=== PATIENT | female | born 1935 | race Caucasian/White ===

== ENCOUNTER 2021-08-15 10:24 | Inpatient (IN) ==
[2021-08-15] MEDS ORDERED: IPRATROPIUM/ALBUTEROL 3 ML AMPUL.NEB NEB ONE (10:28)
[2021-08-15] MEDS ORDERED: methylPREDNISolone SOD SUCC 125 MG/2 ML VIAL IV ONE (10:39)
--- NOTE | 2021-08-15 10:45 | Emergency Department Note ---
SOB HPI General Chief Complaint: Shortness of Breath/Dyspnea Stated Complaint: shortness of breath, hypoxia Time Seen by Provider: 08/15/21 10:28 Source: patient and family Mode of arrival: wheelchair Limitations: no limitations History of Present Illness HPI Narrative: 86-year-old female patient with history of hypertension presents for 4 days of cough, chills, malaise, and shortness of breath. She was seen at [facility] where her O2 saturations were in the 80s on room air. She was sent over for further evaluation. Upon arrival here her O2 sats were 76% on room air. She is vaccinated and boosted for Covid, and vaccinated for influenza. Received the pneumococcal vaccine in 2013. No history of COPD or asthma. She complains of wheezing with her current symptoms. Denies nausea/vomiting. Has also had persistent diarrhea for the last few days. Denies abdominal pain, hematuria or dysuria. Related Data Home Medications Medication Instructions Recorded Confirmed amlodipine 5 mg tablet 5 mg PO QDAY 08/15/21 08/15/21 hydrochlorothiazide 25 mg tablet 25 mg PO QDAY 08/15/21 08/15/21 levothyroxine 88 mcg tablet 88 mcg PO QDAY 08/15/21 08/15/21 ramipril 10 mg capsule 10 mg PO QDAY 08/15/21 08/15/21 simvastatin 20 mg tablet 20 mg PO QHS 08/15/21 08/15/21 Allergies Allergy/AdvReac Type Severity Reaction Status Date / Time No Known Drug Allergies Allergy Verified 08/15/21 10:27 Review of Systems ROS ROS Narrative: Narrative: All systems ED: reviewed and negative except as stated. [facility] Narrative Patient History Narrative: Narrative: Medical/Surgical/Family History All Active Problems (Updated 08/15/21 @ 14:37 by Oralia Cobian PA-C) CAP (community acquired pneumonia) (Acute) Hypoxia (Acute) Social History Smoking Status: Never smoker Exam Narrative Narrative: General: AOx3, NAD, nontoxic appearing. Pleasant and conversant. HEENT: PERRL, EOMI, normocephalic. Moist mucous membranes. Chest: Symmetric, no pain to palpation Respiratory: Expiratory wheezes in the bilateral bases. No respiratory distress. Unlabored breathing. Heart: Regular rate and rhythm, no murmurs/clicks/rubs. Abdomen: Non-tender, Non distended, normal bowel tones. No organomegaly. Extremities: Warm and well perfused. No edema. DP 2+ bilaterally. No venous stasis. Neuro: No focal deficits. Cranial nerves II-XII grossly normal. Skin: Warm dry, no rashes or lesions, no cyanosis. Psych: Normal mood and affect Heme/Lymph: No abnormal bruising General Limitations: no limitations Course Course Course Narrative: 86-year-old female presents for new onset hypoxia and cough Reevaluation(s) Reevaluation #1: Obtain basic labs and chest x-ray DuoNebs EKG Reevaluation #2: EKG shows normal sinus rhythm with a right bundle branch block Laboratory data without leukocytosis, chest x-ray shows a right lower lobe pneumonia--> give IV ceftriaxone and azithromycin Patient's wheezing has improved with duo nebs We will ascertain her oxygen needs. Patient's curb 65 score is 1 and she would prefer to discharge home, but her insurance will not cover home oxygen at this time. Reevaluation #3: Patient is still requiring 2 to 3 L of oxygen via nasal cannula and drops to the mid to high 80s on room air. At this time she will need to be admitted for co mmune acquired pneumonia and hypoxia. I have reached out to our hospitalist here for admission and we are waiting for a bed to become available. Vital Signs Vital signs: Vital Signs Temperature 98.1 F 08/15/21 10:25 Pulse Rate 89 08/15/21 10:25 Respiratory Rate 24 H 08/15/21 10:25 Pulse Oximetry (%) 76 L 08/15/21 10:25 Temperature 98.1 F 08/15/21 10:25 Pulse Rate 87 08/15/21 13:31 Respiratory Rate 21 08/15/21 13:31 Blood Pressure 131/58 08/15/21 13:31 Pulse Oximetry (%) 95 08/15/21 13:31 [facility] MDM Narrative Medical decision making narrative: Community-acquired pneumonia Hypoxia Currently the patient is pending admission and we are waiting for bed to become available. Curb 65 score is 1 and she would prefer to discharge home; however, she does have ongoing oxygen requirements and we are not able to get her home oxygen from the ER. I have spoken with Dr. Bell who has accepted the patient for admission. Lab Data Result diagrams: 08/15/21 10:43 08/15/21 10:43 Labs: Lab Results 08/15/21 08/15/21 Range/Units 10:43 10:43 WBC 8.1 (4.5-11.0) K/mcL RBC 4.72 (3.59-5.38) M/mcL Hgb 12.8 (11.2-15.7) g/dL Hct 37.8 (34.1-44.9) % MCV 80.1 (80.0-100.0) fL MCH 27.1 (26.0-34.0) pg MCHC 33.9 (31.0-36.0) g/dL RDW 14.4 (11.5-14.5) % Plt Count 176 (140-440) K/mcL MPV 11.6 H (7.4-10.4) fL Seg Neutrophils % 79 H (38-78) % Band Neutrophils % 3 (0-10) % Lymphocytes % 10 L (15-49) % Monocytes % (Manual) 7 (1-12) % Basophils % (Manual) 1 (0-2) % Platelet Estimate Normal (Normal) RBC Morphology Normal (Normal) Sodium 126 L (133-145) mmol/L Potassium 3.5 (3.3-5.1) mmol/L Chloride 85 L (96-108) mmol/L Carbon Dioxide 24 (22-30) mmol/L Anion Gap 17.0 H (8.0-16.0) BUN 23 (8-23) mg/dL Creatinine 1.0 (0.6-1.1) mg/dL GFR Calculation 51 Glucose 115 H (70-105) mg/dL Calcium 8.8 (8.6-10.4) mg/dL Total Bilirubin 0.6 (0.1-1.0) mg/dL AST 56 H (<32) U/L ALT 25 (<40) U/L Alkaline Phosphatase 58 (39-117) U/L Total Protein 7.3 (5.9-8.4) gm/dL Albumin 3.9 (3.2-5.2) gm/dL Globulin 3.4 (2.2-3.7) gm/dL Albumin/Globulin Ratio 1.1 (1.0-2.3) ED POC Tests ED POC Tests: RONDA - Influenza A Negative RONDA - Influenza B Negative RONDA - SARS Antigen Negative Discharge Plan Patient/Caregiver Discharge Instructions Pt seen by EMPLOYMENT SECURITY OFFICER/PA only: Yes Clinical Impression: Hypoxia, CAP (community acquired pneumonia) Patient Disposition: Xfer As Inpt ([facility]) Condition: Fair Follow up with: Vika Tena MD [Primary Care Provider] - Prescriptions: No Action amlodipine 5 mg Tablet 5 mg PO QDAY 0RF levothyroxine 88 mcg Tablet 88 mcg PO QDAY 0RF simvastatin 20 mg Tablet 20 mg PO QHS 0RF hydrochlorothiazide 25 mg Tablet 25 mg PO QDAY 0RF ramipril 10 mg Capsule 10 mg PO QDAY 0RF
--- NOTE | 2021-08-15 11:03 | XRay Report ---
INDICATION: dyspnea TECHNIQUE: AP portable upright chest x-ray COMPARISON: None FINDINGS: Lungs:Appearance consistent with COPD. Mild focal infiltrate at the right lung base may be volume loss or small focal area of pneumonia. Heart, vascular:No significant cardiomegaly. Pulmonary vascularity is normal. No pulmonary edema or pulmonary congestion Mediastinum, zhanna:No mediastinal widening. No hilar mass Pleura:No pleural fluid. No pleural-based mass or calcification Skeletal:Negative. IMPRESSION: 1. COPD 2. Focal infiltrate at the right lung base may be volume loss or pneumonia Interpreted and Authenticated by: Lico Rivera 08/15/21
[2021-08-15] MEDS ORDERED: cefTRIAXone 1 GM VIAL IV ONE (11:08)
[2021-08-15] MEDS ORDERED: AZITHROMYCIN 500 MG in DEXTROSE 5% IN WATER 250 ML IV ONE (11:08)
[2021-08-15 11:20] LABS: Hematocrit 37.8 % (34.1-44.9); Hemoglobin 12.8 g/dL (11.2-15.7); Mean Cell Volume 80.1 fL (80.0-100.0); Mean Corpuscular HGB Conc 33.9 g/dL (31.0-36.0); Mean Platelet Volume 11.6 fL (7.4-10.4); Platelet Count 176 K/mcL (140-440); RBC 4.72 M/mcL (3.59-5.38); Red Cell Distribution Width 14.4 % (11.5-14.5); WBC 8.1 K/mcL (4.5-11.0)
[2021-08-15 11:38] LABS: ALT/SGPT 25 U/L (<40); AST/SGOT 56 U/L (<32); Albumin 3.9 gm/dL (3.2-5.2); Albumin/Globulin Ratio 1.1 (1.0-2.3); Alkaline Phosphatase 58 U/L (39-117); Bilirubin,Total 0.6 mg/dL (0.1-1.0); Blood Urea Nitrogen 23 mg/dL (8-23); Calcium 8.8 mg/dL (8.6-10.4); Carbon Dioxide 24 mmol/L (22-30); Chloride 85 mmol/L (96-108); Globulin 3.4 gm/dL (2.2-3.7); Glomerular Filtration Rate 51; Glucose 115 mg/dL (70-105)
[2021-08-15 11:50] LABS: Band Neutrophils % 3 % (0-10); Basophils % (Manual) 1 % (0-2); Lymphocytes % 10 % (15-49); Monocytes % (Manual) 7 % (1-12); Platelet Estimate NORMAL (Normal); RBC Morphology NORMAL (Normal); Segmented Neutrophils % 79 % (38-78)
--- NOTE | 2021-08-15 13:41 | EKG ---
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
--- NOTE | 2021-08-15 14:30 | Internal Med History&Physical ---
HPI History of Present Illness Patient information: Note initiated : 08/15/21 at 2:30 pm Service Date, if different from initiated Date: [] Patient: Georgina Bryant a 86 y/o F admitted on for shortness of breath, hypoxia. Chief Complaint: [] History of present illness: Ms. Bryant is a 86 year old F Presents the ED with increased cough shortness of breath wheezing malaise. Thing up thick white sputum. Increased weakness. [facility] and had low oxygenation and went to the ED and had a saturation of 76% on room air. She says she felt like she had a fever several days ago but never checked her temperature. Work-up in the ED was unrevealing for any lab abnormalities on CBC but chemistry showed a low sodium of 126 and chloride. Patient does take hydrochlorothiazide. Chest x-ray showed COPD changes and RLL infiltrate either volume loss or pna per rads read. Review of Systems: Pertinent positives above. Denies headache//chills/nausea/vomiting/chest or abdominal pain/diarrhea. Many 10 point review of system reviewed negative. PFSH PFSH All Active Problems (Updated 08/15/21 @ 14:37 by Oralia Cobian PA-C) CAP (community acquired pneumonia) (Acute) Hypoxia (Acute) MEDS/ALLERGIES Home Medications and Allergies Home Medications Medication Instructions Recorded Confirmed Type amlodipine 5 mg tablet 5 mg PO QDAY 08/15/21 08/15/21 History hydrochlorothiazide 25 mg tablet 25 mg PO QDAY 08/15/21 08/15/21 History levothyroxine 88 mcg tablet 88 mcg PO QDAY 08/15/21 08/15/21 History ramipril 10 mg capsule 10 mg PO QDAY 08/15/21 08/15/21 History simvastatin 20 mg tablet 20 mg PO QHS 08/15/21 08/15/21 History Allergies Allergy/AdvReac Type Severity Reaction Status Date / Time No Known Drug Allergies Allergy Verified 08/15/21 10:27 EXAM Constitutional Vitals: Temp Pulse Resp BP Pulse Ox 98.1 F 87 21 131/58 95 08/15/21 10:25 08/15/21 13:31 08/15/21 13:31 08/15/21 13:31 08/15/21 13:31 Exam: General: Alert, Awake, No acute Distress Eyes/N/T: EOMI, PERRL, Head/Neck: neck supple, normocephalic atraumatic CV: RRR, No murmurs, normal s1/s2 Pulm: Occasional wheeze mild , prolonged expiratory phase , no rhonchi Abd: soft, nontender, +BS x4 Ext: no clubbing/cyanosis/edema Neuro: Alert, no focal deficits, moves all extremities, CN 2-12 grossly intact, symmetrical strength b/l upper/lower, sensations intact b/l upper/lower Skin: warm/dry DATA Data Completed and Pending Labs: Labs from last 24 hours 08/15/21 08/15/21 10:43 10:43 WBC 8.1 RBC 4.72 Hgb 12.8 Hct 37.8 MCV 80.1 MCH 27.1 MCHC 33.9 RDW 14.4 Plt Count 176 MPV 11.6 H Seg Neutrophils % 79 H Band Neutrophils % 3 Lymphocytes % 10 L Monocytes % (Manual) 7 Basophils % (Manual) 1 Platelet Estimate Normal RBC Morphology Normal Sodium 126 L Potassium 3.5 Chloride 85 L Carbon Dioxide 24 Anion Gap 17.0 H BUN 23 Creatinine 1.0 GFR Calculation 51 Glucose 115 H Calcium 8.8 Total Bilirubin 0.6 AST 56 H ALT 25 Alkaline Phosphatase 58 Total Protein 7.3 Albumin 3.9 Globulin 3.4 Albumin/Globulin Ratio 1.1 A/P Narrative A/P Narrative: A: *Acute hypoxic respiratory failure: -on 2L NC *AECOPD: copd per imaging and smoking history *?PNA: *Hyponatremia: is on HCTZ *Volume depletion: *HTN/HLD: *Hypothyroidism: TSH P: -f/u CXR -check pct/crp -steroids(wean), nebs, IS/Acapella -O2 supp, wean, may need home O2 given copd -rvp pending -Hyponatremia work-up pending -cont home norvasc/ARB, d/c HCTZ for low Na -IVF -PT/OT -Follow-up with pulmonology for PFTs -Home medication reconciliation -ppx: lovenox DNR Time Spent With Patient Time: Total time spent is greater than 50% in coordination of care (as documented) at patient's floor/unit and/or counseling patient: Total time spent with greater than 50% in coordination of care (as documented) at patient's floor/unit and/or counseling patient:: 35 - 50 minutes
[2021-08-15 15:23] LABS: C-Reactive Protein 3.8 mg/dL (0.03-0.80); Uric Acid 8.4 mg/dL (2.5-8.0)
[2021-08-15] MEDS ORDERED: 0.9 % SODIUM CHLORIDE 1,000 ML IV ONE (16:07)
[2021-08-15] MEDS ORDERED: POTASSIUM CHLORIDE 40 MEQ in DEXTROSE 5% IN WATER 500 ML IV PRN (16:07)
[2021-08-15] MEDS ORDERED: POLYETHYLENE GLYCOL 3350 17 GM PACKET PO PRN (16:07)
[2021-08-15] MEDS ORDERED: POTASSIUM CHLORIDE 20 MEQ TABLET PO PRN ×2 (16:07)
[2021-08-15] MEDS ORDERED: IPRATROPIUM/ALBUTEROL 3 ML AMPUL.NEB NEB PRN (16:07)
[2021-08-15] MEDS ORDERED: ACETAMINOPHEN 325 MG TABLET PO PRN (16:07)
[2021-08-15] MEDS ORDERED: SENNOSIDES 1 TABLET PO PRN (16:07)
[2021-08-15] MEDS ORDERED: ONDANSETRON 4 MG/2 ML VIAL IV PRN (16:07)
[2021-08-15] MEDS ORDERED: MAGNESIUM SULFATE 2 GM/50 ML BAG IV PRN (16:07)
[2021-08-15] MEDS ORDERED: IPRATROPIUM/ALBUTEROL 3 ML AMPUL.NEB NEB SCH (16:07)
[2021-08-15 18:15] LABS: Appearance,Urine CLEAR (Clear); Bilirubin,Urine Negative (Negative); Color,Urine STRAW; Culture Indicated,Urine No; Glucose,Urine (UA) Negative (Negative); Ketones,Urine 5 mg/dL (Negative); Leukocyte Esterase,Urine Negative /uL (Negative); Mucus,Urine FEW /hpf; Nitrate,Urine Negative (Negative); Protein,Urine 30 mg/dL (Negative); Specific Gravity,Urine 1.005 (1.000-1.035); Urine RBC 0 /hpf (0-3); Urine Squamous Epithelial Cell < 1 /hpf (0-4); Urine WBC 1 /hpf (0-4); Urobilinogen,Urine Negative
[2021-08-15 18:29] LABS: Osmolality,Urine 248 mOSM/kg (80-1000)
[2021-08-15] MEDS: SIMVASTATIN 20 MG TABLET PO SCH (20:58)
[2021-08-15] MEDS: DOCUSATE SODIUM 100 MG CAPSULE PO SCH (20:58)
[2021-08-15] MEDS: 0.9 % SODIUM CHLORIDE 10 ML SYRINGE IV SCH (20:58)
[2021-08-15] MEDS: methylPREDNISolone SOD SUCC 40 MG/ML VIAL IV SCH (20:58)
[2021-08-16] MEDS: 0.9 % SODIUM CHLORIDE 10 ML SYRINGE IV SCH ×3 (05:55→20:54)
[2021-08-16 07:20] LABS: ALT/SGPT 22 U/L (<40); AST/SGOT 49 U/L (<32); Albumin 3.6 gm/dL (3.2-5.2); Albumin/Globulin Ratio 1.1 (1.0-2.3); Alkaline Phosphatase 52 U/L (39-117); Bilirubin,Direct < 0.2 mg/dL (0-0.3); Bilirubin,Total 0.3 mg/dL (0.1-1.0); Blood Urea Nitrogen 17 mg/dL (8-23); Calcium 8.9 mg/dL (8.6-10.4); Carbon Dioxide 27 mmol/L (22-30); Chloride 98 mmol/L (96-108); Globulin 3.2 gm/dL (2.2-3.7); Glomerular Filtration Rate 78; Glucose 138 mg/dL (70-105); Lactate Dehydrogenase 199 U/L (135-225); Phosphorous 3.2 mg/dL (2.5-4.5); Triglycerides 56 mg/dL (<150); Uric Acid 7.4 mg/dL (2.5-8.0)
--- NOTE | 2021-08-16 07:28 | Internal Med Progress Note ---
SUBJECTIVE Subjective Patient information: Note initiated : 08/16/21 at 7:23 am Service Date, if different from initiated Date: [] Patient: Georgina Bryant a 86 y/o F admitted on 08/15/21 for shortness of breath, hypoxia. Chief Complaint: [] Interval history: History of present illness: Ms. Bryant is a 86 year old F Presents the ED with increased cough shortness of breath wheezing malaise. Thing up thick white sputum. Increased weakness. She was seen at [facility] and had low oxygenation and went to the ED and had a saturation of 76% on room air. She says she felt like she had a fever several days ago but never checked her temperature. Work-up in the ED was unrevealing for any lab abnormalities on CBC but chemistry showed a low sodium of 126 and chloride. Patient does take hydrochlorothiazide. Chest x-ray showed COPD changes and RLL infiltrate either volume loss or pna per rads read. 08/16 Patient has minimal cough. Mild shortness of breath with exertion. Intermittently on room air. Respiratory viral panel with human metapneumovirus. Review of Systems: denies headache/fever/chills/nausea/vomiting/chest or abdominal pain/diarrhea. Otherwise see above. Constitutional Vitals: Vital Signs Temp Pulse Resp BP Pulse Ox 97.5 F 86 20 153/64 96 08/16/21 02:39 08/16/21 02:39 08/16/21 02:39 08/16/21 02:39 08/16/21 02:39 Period Temp Pulse Resp BP Sys/Mancini Pulse Ox Last 24 Hr 97.5 F-99.1 F 68-96 14-25 114-165/51-93 76-100 Intake and Output 08/15/21 08/16/21 08/16/21 21:59 05:59 13:59 Intake Total 1150 Output Total 1500 Balance -350 Weight 50.394 kg Intake & Output: Intake & Output 08/15/21 08/16/21 08/16/21 21:59 05:59 13:59 Intake Total 1150 Output Total 1500 Balance -350 Weight 50.394 kg Intake: IV 1000 Sodium Chloride 0.9% 1,000 ml @ 1000 100 mls/hr IV .Q10H ONE Rx#: [id number] Oral 150 Output: Void Amount 1500 Other: Urine Appearance Clear Urine Color Bright Yellow Exam: General: Alert, Awake, No acute Distress Eyes/N/T: EOMI, , Head/Neck: neck supple, CV: RRR, No murmurs, Pulm: clear b/l, no wheezing today, prolonged expiratory phase , no rhonchi Abd: soft, nontender, +BS x4 Ext: no clubbing/cyanosis/edema Neuro: Alert, no focal deficits, moves all extremities, Skin: warm/dry OBJ DATA Labs CBC & Chem 7: 08/15/21 10:43 08/16/21 05:32 Labs: Abnormal Lab Results 08/16/21 08/15/21 08/15/21 05:32 17:08 10:43 MPV Seg Neutrophils % Lymphocytes % Sodium Chloride Anion Gap Glucose 138 H Osmolality 266 L Uric Acid 8.4 H AST 49 H C-Reactive Protein 3.80 H Urine Protein 30 A Urine Ketones 5 A Urine Mucus Few A 08/15/21 08/15/21 10:43 10:43 MPV 11.6 H Seg Neutrophils % 79 H Lymphocytes % 10 L Sodium 126 L Chloride 85 L Anion Gap 17.0 H Glucose 115 H Osmolality Uric Acid AST 56 H C-Reactive Protein Urine Protein Urine Ketones Urine Mucus Meds: Medications Acetaminophen (Acetaminophen 325 Mg Tablet) 650 mg PO Q6HP PRN; Protocol PRN Reason: Per Pain Protocol/Fever > 101 Albuterol/Ipratropium (Ipratropium/Albuterol 3 Ml Ampul.Neb) 3 ml NEB Q4HP PRN PRN Reason: Shortness Of Breath Albuterol/Ipratropium (Ipratropium/Albuterol 3 Ml Ampul.Neb) 3 ml NEB Q8H [facility] Stop: 08/17/21 09:01 Last Admin: 08/16/21 00:00 Dose: 3 ml Documented by: Amlodipine Besylate (Amlodipine 5 Mg Tablet) 5 mg PO QDAY [facility] Docusate Sodium (Docusate Sodium 100 Mg Capsule) 100 mg PO BID [facility] Last Admin: 08/15/21 20:58 Dose: 100 mg Documented by: Enoxaparin Sodium (Enoxaparin 40 Mg/0.4 Ml Syringe) 40 mg SQ DAILY [facility] Potassium Chloride 40 meq/ (Dextrose) 520 mls @ 130 mls/hr IV UD PRN PRN Reason: Potassium < 3 Magnesium Sulfate (Magnesium Sulfate) 2 gm in 50 mls @ 50 mls/hr IV UD PRN PRN Reason: Magnesium </= 1.6 Levofloxacin (Levofloxacin 750 Mg Tablet) 750 mg PO Q48H [facility]; Protocol Levothyroxine Sodium (Levothyroxine 88 Mcg Tablet) 88 mcg PO ACB [facility] Lisinopril (Lisinopril 20 Mg Tablet) 20 mg PO DAILY [facility] Methylprednisolone Sodium Succinate (Methylprednisolone Sod Succ 40 Mg/Ml Vial) 40 mg IV Q12 [facility] Last Admin: 08/15/21 20:58 Dose: 40 mg Documented by: Ondansetron HCl (Ondansetron 4 Mg/2 Ml Vial) 4 mg IV Q4HP PRN PRN Reason: Nausea And Vomiting Polyethylene Glycol (Polyethylene Glycol 3350 17 Gm Packet) 17 gm PO DAILYP PRN PRN Reason: Constipation Potassium Chloride (Potassium Chloride 20 Meq Tablet) 40 meq PO UD PRN PRN Reason: Potssium is 3-3.5 Last Admin: 08/15/21 20:58 Dose: 40 meq Documented by: Potassium Chloride (Potassium Chloride 20 Meq Tablet) 40 meq PO UD PRN PRN Reason: Potassium < 3 Senna (Sennosides 1 Tablet) 2 tab PO DAILYP PRN PRN Reason: Constipation Simvastatin (Simvastatin 20 Mg Tablet) 20 mg PO QHS [facility] Last Admin: 08/15/21 20:58 Dose: 20 mg Documented by: Sodium Chloride (0.9 % Sodium Chloride 10 Ml Syringe) 10 ml IV Q8 [facility] Last Admin: 08/16/21 05:55 Dose: Not Given Documented by: A/P Narrative A/P Narrative: A: *Acute hypoxic respiratory failure: -on 1L NC, occasionally room air -CXR today unremarkable, pct low *AECOPD: likely 2/2 to Human Metapneumovirus -copd per imaging and smoking history *Human Metapneumovirus infection: *Hyponatremia: is on HCTZ, resolved with IVF *Volume depletion: *HTN/HLD: *Hypothyroidism: TSH wnl P: -steroids(wean), nebs, IS/Acapella -cxr, f/u sodium -O2 supp, wean, may need home O2 given copd -cont home norvasc/ARB, d/c HCTZ for low Na -PT/OT -Follow-up with pulmonology for PFTs -ppx: lovenox DNR Time Spent With Patient Time: Total time spent is greater than 50% in coordination of care (as documented) at patient's floor/unit and/or counseling patient: Total time spent with greater than 50% in coordination of care (as documented) at patient's floor/unit and/or counseling patient:: 25 - 35 minutes QUALITY VTE Deep Vein Thrombosis/Pulmonary Embolism Present on Admission: No
[2021-08-16] MEDS: LEVOTHYROXINE 88 MCG TABLET PO SCH (07:57)
[2021-08-16] MEDS: IPRATROPIUM/ALBUTEROL 3 ML AMPUL.NEB NEB SCH ×3 (08:08→17:36)
--- NOTE | 2021-08-16 08:21 | XRay Report ---
INDICATION: f/u right infiltrate TECHNIQUE: PA and lateral upright chest x-ray COMPARISON: Previous examination dated 08/15/2021 FINDINGS: Lungs: Again demonstrated is hyperexpansion and changes consistent with COPD. Previous examination demonstrated a small focal right basilar infiltrate. This has resolved. No focal parenchymal abnormality. No discrete mass. Heart, vascular: No significant cardiomegaly. Pulmonary vascularity is normal. No pulmonary edema or pulmonary congestion Mediastinum, zhanna: No mediastinal widening. No hilar mass Pleura:No pleural fluid. No pleural-based mass or calcification Thoracic spine, ribs: No thoracic compression fracture. Ribs are negative. No fracture. No lytic lesion IMPRESSION: 1. Appearance consistent with COPD 2. Interval resolution of right basilar infiltrate Interpreted and Authenticated by: Lico Rivera 08/16/21
[2021-08-16] MEDS ORDERED: LEVOFLOXACIN 750 MG TABLET PO SCH (09:00)
[2021-08-16] MEDS: amLODIPine 5 MG TABLET PO SCH (09:13)
[2021-08-16] MEDS: LISINOPRIL 20 MG TABLET PO SCH (09:13)
[2021-08-16] MEDS: methylPREDNISolone SOD SUCC 40 MG/ML VIAL IV SCH (09:14)
[2021-08-16] MEDS: ENOXAPARIN 40 MG/0.4 ML SYRINGE SQ SCH (09:14)
[2021-08-16] MEDS: DOCUSATE SODIUM 100 MG CAPSULE PO SCH ×2 (09:14→20:54)
--- NOTE | 2021-08-16 11:12 | Discharge Summary ---
Discharge Provider Provider Patient information: Note initiated : 08/16/21 at 11:10 am Service Date, if different from initiated Date: [] Patient: Georgina Bryant 86 y/o F admitted on 08/15/21 for shortness of breath, hypoxia. Chief Complaint: [] Date of admission: 08/15/21 15:29 Discharge date: 08/17/21 Primary care physician: Vika Tena Consults: 08/15/21 14:33 Consult to Physician [CONS] Stat Comment: Consulting Provider: Dimitri Bell Reason For Exam: Physician to Consult Discharge Meds Discharge Medications Home Medications amlodipine 5 mg tablet 5 mg PO QDAY 08/15/21 [History Confirmed 08/15/21 Last Taken Unknown] levothyroxine 88 mcg tablet 88 mcg PO QDAY 08/15/21 [History Confirmed 08/15/21 Last Taken Unknown] ramipril 10 mg capsule 10 mg PO QDAY 08/15/21 [History Confirmed 08/15/21 Last Taken Unknown] simvastatin 20 mg tablet 20 mg PO QHS 08/15/21 [History Confirmed 08/15/21 Last Taken Unknown] albuterol sulfate 90 mcg/actuation aerosol inhaler 2 puff INHALATION Q6H PRN #8.5 g 08/16/21 [Rx Last Taken Unknown] prednisone 10 mg tablet 40 mg PO QDAY #1 tab 08/16/21 [Rx Last Taken Unknown] COURSE Hospital Course Hospital course: History of present illness: Ms. Bryant is a 86 year old F Presents the ED with increased cough shortness of breath wheezing malaise. Thing up thick white sputum. Increased weakness. She was seen at [facility] and had low oxygenation and went to the ED and had a saturation of 76% on room air. She says she felt like she had a fever several days ago but never checked her temperature. Work-up in the ED was unrevealing for any lab abnormalities on CBC but chemistry showed a low sodium of 126 and chloride. Patient does take hydrochlorothiazide. Chest x-ray showed COPD changes and RLL infiltrate either volume loss or pna per rads read. 08/16 Patient has minimal cough. Mild shortness of breath with exertion. Intermittently on room air. Respiratory viral panel with human metapneumovirus. 08/17 Patient seems to be doing well. On room air at rest sats low 90s. We will have respiratory therapy evaluate her for oxygen needs while ambulating. A: *Acute hypoxic respiratory failure: *AECOPD: likely 2/2 to Human Metapneumovirus -copd per imaging and smoking history *Human Metapneumovirus infection: *Hyponatremia: is on HCTZ, resolved with IVF *Volume depletion: *HTN/HLD: *Hypothyroidism: TSH wnl P: -steroids(wean), rescue IH -d/c HCTZ for low Na -Follow-up with pulmonology for PFTs Discharge diagnosis: Acute hypoxic respite failure COPD exacerbation human metapneumovirus infec Secondary discharge diagnosis: Hyponatremia volume depletion hypertension hypothyroidism Time Spent with Patient Time attestation: Total time spent providing and/or coordinating discharge services: Time spent: Greater than 30 minutes EXAM Constitutional Vitals: Temp Pulse Resp BP Pulse Ox 98.4 F 75 16 143/61 91 08/16/21 08:00 08/16/21 08:09 08/16/21 08:09 08/16/21 08:00 08/16/21 08:30 Discharge Data Data Completed and Pending Labs on day of discharge: Labs from last 24 hours 08/16/21 08/15/21 08/15/21 05:32 17:08 17:08 WBC RBC Hgb Hct MCV MCH MCHC RDW Plt Count MPV Seg Neutrophils % Band Neutrophils % Lymphocytes % Monocytes % (Manual) Basophils % (Manual) Platelet Estimate RBC Morphology Sodium 136 Potassium 3.9 Chloride 98 Carbon Dioxide 27 Anion Gap 11.0 BUN 17 Creatinine 0.7 GFR Calculation 78 Glucose 138 H Osmolality Uric Acid 7.4 Calcium 8.9 Phosphorus 3.2 Magnesium 2.0 Total Bilirubin 0.3 Direct Bilirubin < 0.2 GGT 12 AST 49 H ALT 22 Alkaline Phosphatase 52 Lactate Dehydrogenase 199 C-Reactive Protein Total Protein 6.8 Albumin 3.6 Globulin 3.2 Albumin/Globulin Ratio 1.1 Triglycerides 56 Procalcitonin TSH Urine Color Straw Urine Appearance Clear Urine pH 5.0 Ur Specific [place] 1.005 Urine Protein 30 A Urine Glucose (UA) Negative Urine Ketones 5 A Urine Occult Blood 0.20 Urine Nitrate Negative Urine Bilirubin Negative Urine Urobilinogen Negative Ur Leukocyte Esterase Negative Urine RBC 0 Urine WBC 1 Ur Squamous Epith Cells < 1 Urine Bacteria None Urine Mucus Few A Ur Culture Indicated? No Urine Osmolality 248 Ur Random Sodium 30 08/15/21 08/15/21 08/15/21 10:43 10:43 10:43 WBC RBC Hgb Hct MCV MCH MCHC RDW Plt Count MPV Seg Neutrophils % Band Neutrophils % Lymphocytes % Monocytes % (Manual) Basophils % (Manual) Platelet Estimate RBC Morphology Sodium Potassium Chloride Carbon Dioxide Anion Gap BUN Creatinine GFR Calculation Glucose Osmolality 266 L Uric Acid 8.4 H Calcium Phosphorus Magnesium Total Bilirubin Direct Bilirubin GGT AST ALT Alkaline Phosphatase Lactate Dehydrogenase C-Reactive Protein 3.80 H Total Protein Albumin Globulin Albumin/Globulin Ratio Triglycerides Procalcitonin 0.08 TSH 1.22 Urine Color Urine Appearance Urine pH Ur Specific [place] Urine Protein Urine Glucose (UA) Urine Ketones Urine Occult Blood Urine Nitrate Urine Bilirubin Urine Urobilinogen Ur Leukocyte Esterase Urine RBC Urine WBC Ur Squamous Epith Cells Urine Bacteria Urine Mucus Ur Culture Indicated? Urine Osmolality Ur Random Sodium 08/15/21 08/15/21 10:43 10:43 WBC 8.1 RBC 4.72 Hgb 12.8 Hct 37.8 MCV 80.1 MCH 27.1 MCHC 33.9 RDW 14.4 Plt Count 176 MPV 11.6 H Seg Neutrophils % 79 H Band Neutrophils % 3 Lymphocytes % 10 L Monocytes % (Manual) 7 Basophils % (Manual) 1 Platelet Estimate Normal RBC Morphology Normal Sodium 126 L Potassium 3.5 Chloride 85 L Carbon Dioxide 24 Anion Gap 17.0 H BUN 23 Creatinine 1.0 GFR Calculation 51 Glucose 115 H Osmolality Uric Acid Calcium 8.8 Phosphorus Magnesium Total Bilirubin 0.6 Direct Bilirubin GGT AST 56 H ALT 25 Alkaline Phosphatase 58 Lactate Dehydrogenase C-Reactive Protein Total Protein 7.3 Albumin 3.9 Globulin 3.4 Albumin/Globulin Ratio 1.1 Triglycerides Procalcitonin TSH Urine Color Urine Appearance Urine pH Ur Specific [place] Urine Protein Urine Glucose (UA) Urine Ketones Urine Occult Blood Urine Nitrate Urine Bilirubin Urine Urobilinogen Ur Leukocyte Esterase Urine RBC Urine WBC Ur Squamous Epith Cells Urine Bacteria Urine Mucus Ur Culture Indicated? Urine Osmolality Ur Random Sodium Discharge Plan Patient/Caregiver Discharge Instructions Activity: increase activity as tolerated Diet: Regular Diet Activity Restrictions/Additional Instructions: Referral to see pulmonology in 1 to 2 weeks for COPD evaluation, possible PFTs. Prescriptions: New prednisone 10 mg tablet 40 mg PO QDAY Qty: 1 0RF Rx Instructions: Take 40mg once daily for 2 days then 30mg daily x2 days then 20mg x2 days then 10mg x2 days then 5mg x 2 days and stop albuterol sulfate 90 mcg/actuation HFA aerosol inhaler 2 puff inhalation Q6H PRN (Reason: shortness of breath or wheezing) Qty: 8.5 0RF Continued amlodipine 5 mg Tablet 5 mg PO QDAY 0RF levothyroxine 88 mcg Tablet 88 mcg PO QDAY 0RF simvastatin 20 mg Tablet 20 mg PO QHS 0RF ramipril 10 mg Capsule 10 mg PO QDAY 0RF Discontinued hydrochlorothiazide 25 mg Tablet 25 mg PO QDAY 0RF Follow Up Plan Follow up with: Vika Tena MD [Primary Care Provider] - Patient Disposition: Home, Self-Care Prognosis: Fair Overall status at discharge: patient is progressing back to baseline Discharge Orders: Discharge Order (Routine); Ordered 08/17/21 Ordered By: Dimitri Bell [facility] Deep Vein Thrombosis/Pulmonary Embolism Present on Admission: No
[2021-08-16] MEDS: predniSONE 20 MG TABLET PO SCH (17:29)
[2021-08-16] MEDS: SIMVASTATIN 20 MG TABLET PO SCH (20:54)
[2021-08-17] MEDS: IPRATROPIUM/ALBUTEROL 3 ML AMPUL.NEB NEB SCH ×2 (01:45→09:46)
[2021-08-17] MEDS: LEVOTHYROXINE 88 MCG TABLET PO SCH (07:11)
[2021-08-17] MEDS: predniSONE 20 MG TABLET PO SCH (08:28)
[2021-08-17] MEDS: LISINOPRIL 20 MG TABLET PO SCH (08:29)
[2021-08-17] MEDS: DOCUSATE SODIUM 100 MG CAPSULE PO SCH (08:29)
[2021-08-17] MEDS: amLODIPine 5 MG TABLET PO SCH (08:29)
[2021-08-17] MEDS: ENOXAPARIN 40 MG/0.4 ML SYRINGE SQ SCH (08:29)
[2021-08-17] MEDS: 0.9 % SODIUM CHLORIDE 10 ML SYRINGE IV SCH (08:30)
== END 2021-08-17 11:45 | disposition home or self-care (01) | DRG 189 ==
LOC: ED 10:24 → MEDSUR 15:29
PROVIDERS: ADMIT Internal Medicine; ATTEND Internal Medicine